=== PATIENT | female | born 1935 | race Caucasian/White ===

== ENCOUNTER 2018-04-22 20:15 | Emergency (ER) | payer MEDICARE ==
[2018-04-22] MEDS ORDERED: SODIUM CHLORIDE 0.9% 500 ML 500 ML IV STA (20:59)
[2018-04-22] MEDS ORDERED: MORPHINE SULFATE 4 MG/ML SYRINGE IVP STA (21:00)
[2018-04-22 22:01] LABS: Basophils % (A) 1 %; Eosinophils # (A) 0.2 k/uL (0-0.7); Eosinophils % (A) 4 %; HCT 39.9 % (34.0-46.0); HGB 12.8 gm/dL (11.4-16.0); Lymphocytes # (A) 1.4 k/uL (1.0-4.8); Lymphocytes % (A) 20 %; MCH 30.2 pg (25.0-35.0); MCHC 32.2 g/dL (31.0-37.0); MCV 93.8 fL (80.0-100.0); Mean Platelet Volume 8.4; Monocytes # (A) 0.4 k/uL (0-1.0); Monocytes % (A) 5 %; Neutrophils # (A) 4.7 k/uL (1.3-7.7); Neutrophils % (A) 69 %; Platelet Count 219 k/uL (150-450); RBC 4.25 m/uL (3.80-5.40); RDW 13.8 % (11.5-15.5); WBC 6.8 k/uL (3.8-10.6)
[2018-04-22 22:12] LABS: Potassium 4.8 mmol/L (3.5-5.1)
[2018-04-22 22:13] LABS: Albumin 4.3 g/dL (3.5-5.0); Calcium 10.1 mg/dL (8.4-10.2); Total Bilirubin 0.5 mg/dL (0.2-1.3); Total Protein 7.2 g/dL (6.3-8.2)
[2018-04-22 22:29] LABS: Appearance,Urine Clear (Clear); Bilirubin,Urine Negative (Negative); Blood,Urine Negative (Negative); Color,Urine Yellow; Glucose,Urine (UA) Negative (Negative); Ketones,Urine Negative (Negative); Leukocyte Esterase,Urine Negative (Negative); Nitrite,Urine Negative (Negative); PH, Urine 5.5 (5.0-8.0); Protein,Urine Negative (Negative); Specific Gravity,Urine 1.013 (1.001-1.035)
[2018-04-22 22:32] VITALS: RESP 18
--- NOTE | 2018-04-22 22:34 | ED ---
General Adult HPI - General Chief complaint: Back Pain/Injury Stated complaint: Fall, back pain, SOB Time Seen by Provider: 04/22/18 20:46 Source: patient, RN notes reviewed Mode of arrival: ambulatory Limitations: no limitations - History of Present Illness Initial comments: 82-year-old female with a past medical history of cancer, hyperlipidemia, hype rtension presents to the emergency department for a chief complaint of back pain and right-sided flank pain 5 weeks. Patient states she was walking to the bathroom and she slipped and fell about 5 weeks ago. She has had pain in the back since that time. She states over the past 5 days it is worsening. Patient states the pain is mostly in the right side of her back. Denies any radiating pain. Denies any weakness in the bilat lower extremities. No bladder or bowel changes. No saddle anesthesia. She states she was supposed to receive an MRI but has not yet had an appointment. According to triage patient with shortness of breath the patient states this is only when the pain is very severe it takes her breath away. Patient has no other complaints at this time including shortness of breath, chest pain, abdominal pain, nausea or vomiting, headache, or visual changes. - Related Data Allergies Allergy/AdvReac Type Severity Reaction Status Date / Time Penicillins Allergy Rash/Hives Verified 04/22/18 20:41 Review of Systems ROS Statement: Those systems with pertinent positive or pertinent negative responses have been documented in the HPI. ROS Other: All systems not noted in ROS Statement are negative. Past Medical History Past Medical History: Cancer, Hyperlipidemia, Hypertension Additional Past Medical History / Comment(s): breast CA History of Any Multi-Drug Resistant Organisms: None Reported Past Surgical History: Appendectomy, Orthopedic Surgery Additional Past Surgical History / Comment(s): right shoulder, left mastectomy Past Psychological History: Depression Smoking Status: Light tobacco smoker Past Alcohol Use History: Daily Past Drug Use History: None Reported General Exam Limitations: no limitations General appearance: alert, in no apparent distress Head exam: Present: atraumatic, normocephalic, normal inspection Eye exam: Present: normal appearance, PERRL, EOMI. Absent: scleral icterus, conjunctival injection, periorbital swelling ENT exam: Present: normal exam, mucous membranes moist Neck exam: Present: normal inspection, full ROM. Absent: tenderness, meningismus, lymphadenopathy Respiratory exam: Present: normal lung sounds bilaterally. Absent: respiratory distress, wheezes, rales, rhonchi, stridor Cardiovascular Exam: Present: regular rate, normal rhythm, normal heart sounds. Absent: systolic murmur, diastolic murmur, rubs, gallop, clicks GI/Abdominal exam: Present: soft, normal bowel sounds. Absent: distended, tenderness, guarding, rebound, rigid Extremities exam: Present: normal capillary refill (Capillary refill less than 2 seconds, DP pulse 2+ in lower extremities bilaterally) Back exam: Present: paraspinal tenderness (Minimal right-sided paraspinal tenderness). Absent: CVA tenderness (R), CVA tenderness (L), vertebral tenderness (No vertebral tenderness) Neurological exam: Present: alert, oriented X3, CN II-XII intact Psychiatric exam: Present: normal affect, normal mood Skin exam: Present: warm, dry, intact, normal color. Absent: rash Course Vital Signs 04/22/18 04/22/18 04/22/18 20:35 22:00 22:27 Temperature 99.1 F Pulse Rate 70 67 68 Respiratory 18 16 18 Rate Blood Pressure 132/66 143/67 O2 Sat by Pulse 96 95 95 Oximetry Medical Decision Making - Medical Decision Making 82-year-old female presents to the emergency department for a chief complaint of back pain after fall 5 weeks ago. Patient states this is worsening in the past 5 days. Patient states the pain is mostly on the right side of the back. Patient states she is supposed to be receiving an MRI soon. Denies any bladder or bowel changes. Denies any saddle anesthesia. Denies any fevers or chills. Exam is unremarkable. Patient is ambulatory. . CBC CMP unremarkable. Creatinine somewhat elevated at 1.11, likely dehydrated. Patient given fluids. CT shows no acute abnormality of the abdomen or pelvis. There is a 3.8 x 3.8 cm infrarenal abdominal aortic aneurysm without dissection. There is diverticulosis without diverticulitis. Discussed these results with patient who is stating she is absolutely right ago. Morphine did help somewhat. Patient is not having any difficulty ambulating. At this time patient will follow up with primary care or Dr. Rivera for MRI. She will return here if she has any worsening symptoms. I discussed strict return parameters with her. - Lab Data Result diagrams: 04/22/18 21:47 04/22/18 21:47 Lab Results 04/22/18 04/22/18 04/22/18 Range/Units 21:47 21:47 22:00 WBC 6.8 (3.8-10.6) k/uL RBC 4.25 (3.80-5.40) m/uL Hgb 12.8 (11.4-16.0) gm/dL Hct 39.9 (34.0-46.0) % MCV 93.8 (80.0-100.0) fL MCH 30.2 (25.0-35.0) pg MCHC 32.2 (31.0-37.0) g/dL RDW 13.8 (11.5-15.5) % Plt Count 219 (150-450) k/uL Neutrophils % 69 % Lymphocytes % 20 % Monocytes % 5 % Eosinophils % 4 % Basophils % 1 % Neutrophils # 4.7 (1.3-7.7) k/uL Lymphocytes # 1.4 (1.0-4.8) k/uL Monocytes # 0.4 (0-1.0) k/uL Eosinophils # 0.2 (0-0.7) k/uL Basophils # 0.0 (0-0.2) k/uL Sodium 139 (137-145) mmol/L Potassium 4.8 (3.5-5.1) mmol/L Chloride 105 (98-107) mmol/L Carbon Dioxide 24 (22-30) mmol/L Anion Gap 10 mmol/L BUN 26 H (7-17) mg/dL Creatinine 1.11 H (0.52-1.04) mg/dL Est GFR (CKD-EPI)AfAm 54 (>60 ml/min/1.73 sqM) Est GFR (CKD-EPI)NonAf 47 (>60 ml/min/1.73 sqM) Glucose 83 (74-99) mg/dL Calcium 10.1 (8.4-10.2) mg/dL Total Bilirubin 0.5 (0.2-1.3) mg/dL AST 24 (14-36) U/L ALT 33 (9-52) U/L Alkaline Phosphatase 167 H (38-126) U/L Total Protein 7.2 (6.3-8.2) g/dL Albumin 4.3 (3.5-5.0) g/dL Amylase 76 (30-110) U/L Lipase 126 (23-300) U/L Urine Color Yellow Urine Appearance Clear (Clear) Urine pH 5.5 (5.0-8.0) Ur Specific [place] 1.013 (1.001-1.035) Urine Protein Negative (Negative) Urine Glucose (UA) Negative (Negative) Urine Ketones Negative (Negative) Urine Blood Negative (Negative) Urine Nitrite Negative (Negative) Urine Bilirubin Negative (Negative) Urine Urobilinogen 2.0 (<2.0) mg/dL Ur Leukocyte Esterase Negative (Negative) Disposition Clinical Impression: Mechanical back pain Disposition: HOME SELF-CARE Condition: Good Instructions (If sedation given, give patient instructions): Acute Low Back Pain (ED), Lower Back Exercises (ED) Additional Instructions: Please follow up with primary care or orthopedics in one to 2 days. Continue to speak with your primary care doctor about MRI. Return to the emergency department if you have any worsening symptoms such as inability to control blad aurora or bowels. Is patient prescribed a controlled substance at d/c from ED?: No Referrals: Hali Cm DO [Primary Care Provider] - 1-2 days Benja Rivera DO [Doctor of Osteopathic Medicine] - 1-2 days Time of Disposition: 00:24
--- NOTE | 2018-04-22 23:58 | CT ---
EXAM: CT Abdomen and Pelvis With Intravenous Contrast CLINICAL History: abdominal pain TECHNIQUE: Axial computed tomography images of the abdomen and pelvis with intravenous contrast. CTDI is 15.3 mGy and DLP is 698.2 mGy-cm. This CT exam was performed using one or more of the following dose reduction techniques: automated exposure control, adjustment of the mA and/or kV according to patient size, and/or use of iterative reconstruction technique. COMPARISON: No relevant prior studies available. FINDINGS: Lung bases: Unremarkable. No mass. No consolidation. ABDOMEN: Liver: Mild fatty infiltration the liver. No mass. Gallbladder and bile ducts: Layering sludge versus small stones in the gallbladder. No pericholecystic fluid. No ductal dilation. Pancreas: Unremarkable. No mass. No ductal dilation. Spleen: Unremarkable. No splenomegaly. Adrenals: Unremarkable. No mass. Kidneys and ureters: Unremarkable. No solid mass. No hydronephrosis. Stomach and bowel: Moderate hiatal hernia. Sigmoid diverticulosis without evidence of diverticulitis PELVIS: Appendix: The appendix is not identified. No inflammatory changes are noted around the cecum. Bladder: Unremarkable. No mass. Reproductive: Unremarkable as visualized. ABDOMEN and PELVIS: Intraperitoneal space: Unremarkable. No free air. No significant fluid collection. Bones/joints: No acute fracture. No dislocation. Soft tissues: Unremarkable. Vasculature: There is a infrarenal abdominal aortic aneurysm measures 3. 8 cm wide by 3.8 cm in length. There is intraluminal thrombus evident. No evidence for dissection. Lymph nodes: Unremarkable. No enlarged lymph nodes. IMPRESSION: No acute abnormality abdomen or pelvis Note made of a 3.8 x 3.8 infrarenal abdominal aortic aneurysm. No dissection. Sigmoid diverticulosis without definite evidence of diverticulitis
[2018-04-23 00:39] VITALS: BP 145/67; PULSE 78; TEMP 97
== END 2018-04-23 00:42 | disposition home or self-care (01) ==
LOC: EC 20:15
DX: M54.9 Dorsalgia, unspecified (principal); R06.02 Shortness of breath; I71.4 Abdominal aortic aneurysm, without rupture; K57.30 Diverticulosis of large intestine without perforation or abscess without bleeding; F17.200 Nicotine dependence, unspecified, uncomplicated; Z88.0 Allergy status to penicillin; Z85.3 Personal history of malignant neoplasm of breast; Z90.12 Acquired absence of left breast and nipple; W01.0XXA Fall on same level from slipping, tripping and stumbling without subsequent striking against object, initial encounter; Y92.002 Bathroom of unspecified non-institutional (private) residence as the place of occurrence of the external cause
CPT/HCPCS: 36415; 80053; 82150; 83690; 85025; 81003; 74177; 99284; 96374; 96361 ×2; J2270; Q9967

== ENCOUNTER → 2022-01-19 | Outpatient (CLI) | payer MEDICARE ==
--- NOTE | 2022-01-19 16:20 | US ---
EXAMINATION TYPE: US venous doppler duplex LE RT DATE OF EXAM: 01/19/2022 4:02 PM COMPARISON: NONE CLINICAL HISTORY: R60.0 localized edema. Pain in leg. No redness or swelling. SIDE PERFORMED: Right TECHNIQUE: The lower extremity deep venous system is examined utilizing real time linear array sonog saul with graded compression, doppler sonography and color-flow sonography. VESSELS IMAGED: Common Femoral Vein Deep Femoral Vein Greater Saphenous Vein * Femoral Vein Popliteal Vein Small Saphenous Vein * Proximal Calf Veins (* superficial vessels) Right Leg: Negative for DVT, Grayscale, color doppler, spectral doppler imaging performed of the aliyah p veins of the lower extremities. There is normal flow, compressibility, vascular waveforms. IMPRESSION: No evidence for deep vein thrombosis of the right lower extremity.
== END | disposition home or self-care (01) ==
LOC: RADUSWWP 15:35
PROVIDERS: ATTEND Family Medicine
DX: R60.0 Localized edema (principal)